=== PATIENT | female | born 2000 | race Two or more races ===

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

== ENCOUNTER 2022-05-06 10:15 | Emergency (ER) | payer MEDICAID, OTHER ==
[~2022-05-06] VITALS: Ht 154.9 cm; Wt 77.9 kg
[2022-05-06 11:11] VITALS: BP 115/74
[2022-05-06] MEDS ORDERED: IBUP600T27 PO (12:54)
== END 2022-05-06 13:12 | disposition home or self-care (01) ==
LOC: ER 10:15
DX: R51.9 Headache, unspecified (principal); V43.62XA Car passenger injured in collision with other type car in traffic accident, initial encounter; Y93.89 Activity, other specified; Y92.89 Other specified places as the place of occurrence of the external cause; Y99.8 Other external cause status
CPT/HCPCS: 70450

== ENCOUNTER 2023-07-15 01:11 | Emergency (ER) | payer MEDICAID, OTHER ==
[~2023-07-15] VITALS: Ht 154.9 cm; Wt 79.0 kg
[~2023-07-15 01:11] MED LIST: IBUP-1454 PO
[2023-07-15 01:30] VITALS: BP 116/82; PULSE 79; RESP 18; TEMP 98.9; O2SAT 99
[2023-07-15 04:38] LABS: Urine Bacteria NONE SEEN /hpf (None Seen); Urine Blood Negative /uL (Negative); Urine Clarity Clear (Clear); Urine Color Colorless (Yellow); Urine Protein, UAD Negative (Negative); Urine Specific Gravity 1.007 (1.001-1.035); Urine Urobilinogen Normal (Negative); Urine WBC 9 /hpf (0 - 5)
[2023-07-15] MEDS ORDERED: NITR-52 PO (04:55)
== END 2023-07-15 05:20 | disposition home or self-care (01) ==
LOC: ER 01:11
DX: N39.0 Urinary tract infection, site not specified (principal); F41.9 Anxiety disorder, unspecified; Z79.899 Other long term (current) drug therapy
CPT/HCPCS: 81001; 81025

== ENCOUNTER 2024-10-25 21:33 | Emergency (ER) | payer MEDICAID ==
[~2024-10-25] VITALS: Ht 154.9 cm; Wt 76.2 kg
[~2024-10-25 21:33] MED LIST changes: +NITR-52 PO
[2024-10-25 23:18] VITALS: BP 123/75; PULSE 56; RESP 16; TEMP 97.9; O2SAT 100
[2024-10-25] MEDS ORDERED: ACET500T58 PO (23:22)
[2024-10-25] MEDS: ACETAMINOPHEN 325 MG TAB PO ONE (23:22)
--- NOTE | 2024-10-25 23:23 | ED.PDOC ---
HPI (NEURO) HPI Comments 24-year-old female presents to ER with complaints of headache x1 day. Patient reports that she has been experiencing frontal headache with associated nausea and dizziness that started with onset of her headache x1 day. She rates her current pain a 6/10 diffuse to forehead without radiation. Denies use of medications for current symptoms. States that her nausea and dizziness has since fully subsided, denying any current nausea/dizziness and presents to ER alert and oriented x4, with steady gait, in no distress. Denies fever, vomiting, recent illness, head injury, numbness/tingling, vision changes, confusion or any further symptoms/complaints Chief Complaint: Headache Time Seen by MD: 21:38 Primary Care Provider: n/a Reviewed Notes: Nurses Notes, Medications, Allergies Information Source: Patient Mode of Arrival: Ambulatory Past Medical History PAST MEDICAL HISTORY: Anxiety Surgical History: Denies all surgeries MAINTENANCE MGR History: No Pertinent MAINTENANCE MGR History Family History Family History: Unknown Social History Smoker: Non-Smoker Alcohol: Denies ETOH Use Drugs: Denies Drug Use Lives In: Home Constitutional: denies: chills, diaphoresis, fatigue, fever, malaise, sweats, weakness, others EENTM: denies: blurred vision, double vision, ear bleeding, ear discharge, ear drainage, ear pain, ear ringing, eye pain, eye redness, hearing loss, mouth pain, mouth swelling, nasal discharge, nose bleeding, nose congestion, nose pain, photophobia, tearing, throat pain, throat swelling, voice changes, others Respiratory: denies: cough, hemoptysis, orthopnea, SOB at rest, shortness of breath, SOB with excertion, stridor, wheezing, others Cardiovascular: denies: chest pain, dizzy spells, diaphoresis, Dyspnea on exertion, edema, irregular heart beat, left arm pain, lightheadedness, palpitations, PND, syncope, others Gastrointestinal: reports: others (As stated in HPI) Genitourinary: denies: abnormal vagina bleeding, burning, dyspareunia, dysuria, flank pain, frequency, hematuria, incontinence, pain, , vagina discharge, urgency, others Neurological: reports: others (As stated in HPI) Musculoskeletal: denies: back pain, gout, joint pain, joint swelling, muscle pain, muscle stiffness, neck pain, others Integumetry: denies: bruises, change in color, change in hair/nails, dryness, laceration, lesions, lumps, rash, wounds, others Allergic/Immunocompromised: denies: Difficulty Healing, Frequent Infections, Hives, Itching, others Hematologic/Lymphatic: denies: anemia, blood clots, easy bleeding, easy bruising, swollen glands, others Endocrine: denies: excessive hunger, excessive sweating, excessive thirst, excessive urination, flushing, intolerance to cold, intolerance to heat, unexplained weight gain, unexplained weight loss, others Psychiatric: denies: anxiety, bipolar disorder, depression, hopeless, panic disorder, schizophrenia, sleepless, suicidal, others Physical Exam General Appearance: No Apparent Distress, Obese HEENT: Normal ENT Inspection, PERRL/EOMI, Pharynx Normal, TMs Normal Neck: Full Range of Motion, Non-Tender, Normal Respiratory: Chest Non-Tender, Lungs Clear, No Accessory Muscle Use, No Respiratory Distress, Normal Breath Sounds Cardiovascular: No Murmur, No Gallop, Regular Rate/Rhythm Breast Exam: Deferred Gastrointestinal: Non Tender, No Pulsatile Mass, Soft Genitalia: Deferred Pelvic: Deferred Rectal: Deferred Extremities: Normal capillary refill, Normal range of motion Neurologic: Alert, job tracer II-XII nml as Tested, No Motor Deficits, Normal Affect, Normal Mood, No Sensory Deficits Cerebellar Function: Normal Reflexes: Normal Skin: Dry, Normal Color, Warm Lymphatic: No Adenopathy Was a procedure done? Was a procedure done?: No Sedation Sedation?: No Differential Diagnosis (SZ) Headache: Cluster, Migraine, Closed Head Injury, Subarachnoid Hemorrhage, Subdural Hemorrhage, Mass Lesion, Sinusitis X-Ray, Labs, Meds, VS Vital Signs Date Time Temp Pulse Resp B/P (MAP) Pulse Ox O2 Delivery O2 Flow Rate FiO2 10/25/24 23:18 56 16 100 Room Air 10/25/24 23:18 97.9 56 16 123/75 (91) 100 97.9 10/25/24 22:54 97.4 56 16 123/75 (91) 100 97.4 Lab Test 10/25/24 23:06 Range/Units Urine Color Light-yellow Yellow Urine Clarity Turbid H Clear Urine pH 5.5 5.0-9.0 Urine Specific [place] 1.018 1.001-1.035 Urine Protein Negative Negative Urine Ketones 1+ H Negative Urine Blood Negative Negative /uL Urine Nitrite Negative Negative Urine Bilirubin Negative Negative Urine Urobilinogen Normal Negative mg/dL Urine Leukocyte Esterase 3+ Negative /uL Urine RBC 2 0 - 4 /hpf Urine Microscopic WBC 12 H 0-5 /HPF Urine Squamous Epithelial Cells Mod <5 /hpf Urine Bacteria Few H None Seen /hpf Urine Mucus Few None Seen Urine Glucose Normal Normal mg/dL Urine Test Negative Negative Current Medications Medications (Trade) Dose Ordered Sig/Edel Route Start Time Stop Time Status Last Admin Acetaminophen (Tylenol Tablet) 650 mg ONCE ONCE PO 10/25/24 23:30 10/25/24 23:31 DC 10/25/24 23:22 Tylenol 650 mg p.o. ordered Urine reviewed-negative Urinalysis reviewed-urine leukocyte esterase 3+, urine blood negative, urine nitrites negative Patient had improvement in symptoms and was asymptomatic prior to discharge Advised to drink plenty of fluids Advised to follow up with PCP in 1-2 days Patient alert and oriented x4 prior to discharge. Patient verbalized understanding and agreeable with current plan of care Advised to return to ER immediately if symptoms worsen Time of 1ST Reevaluation: 23:04 Reevaluation 1ST: N/A Patient Education/Counseling: Diagnosis, Treatment, Prognosis, Need For Follow Up Family Education/Counseling: No Family Present Departure 1 Departure Time of Disposition: 23:20 Impression: Primary Impression: Tension headache Additional Impression: UTI (urinary tract infection) Qualified Codes: N30.00 - Acute cystitis without hematuria Disposition: HOME / SELF CARE / HOMELESS Condition: Stable e-Prescriptions Sulfamethoxazole W/Trimethopri (Bactrim Ds Tablet) 1 Tab Tb 1 TAB PO BID for 7 Days, #14 TAB 0 Refills Prov: ERNESTINA PEARSON 10/26/24 Acetaminophen (Acetaminophen) 500 Mg Tab 500 MG PO Q4HPRN, #30 TAB 0 Refills Prov: ERNESTINA PEARSON 10/25/24 Discharged With: Self Critical Care Note Critical Care Time?: No Stability Stability form required: No Heart Score Heart Score: Heart Score Response (Comments) Value History N/A 0 EKG N/A 0 Age N/A 0 Risk Factors N/A 0 Troponin N/A 0 Total 0 ERNESTINA PEARSON Oct 25, 2024 23:23
[2024-10-25 23:43] LABS: Urine Bacteria FEW /hpf (None Seen); Urine Blood Negative /uL (Negative); Urine Clarity Turbid (Clear); Urine Color Light-Yellow (Yellow); Urine Mucus FEW (None Seen); Urine Protein, UAD Negative (Negative); Urine Specific Gravity 1.018 (1.001-1.035); Urine Squamous Epithelial Cell MOD /hpf (<5); Urine Urobilinogen Normal (Negative); Urine WBC 12 /HPF (0-5); Urine pH 5.5 (5.0-9.0)
[2024-10-26] MEDS ORDERED: BACDST PO (00:03)
== END 2024-10-26 00:10 | disposition home or self-care (01) ==
LOC: ER 21:33
DX: G44.209 Tension-type headache, unspecified, not intractable (principal); N39.0 Urinary tract infection, site not specified; F41.9 Anxiety disorder, unspecified
CPT/HCPCS: 81001; 81025